=== PATIENT | female | born 1980 | race Caucasian/White ===

== ENCOUNTER 2020-03-23 10:00 | Emergency (ER) | payer BC, SELFPAY ==
--- NOTE | 2020-03-23 10:14 | ED_ITS ---
HPI - Extremity Injury (Upper) General: Chief Complaint: Extremity Injury, Upper Stated Complaint: RIGHT HAND/FINGER SWELLING Time Seen by Provider: 03/23/20 10:14 Source: patient Mode of arrival: ambulatory Limitations: no limitations History of Present Illness: HPI narrative: Patient comes in for swelling of the third distal digit. Patient states that last week she had shut the finger in a car door and caused a ungual hematoma. Patient was monitoring it but it seems the distal finger has swollen more and has become more tender. Some redness is noted to the distal finger. Vital signs are normal. Review of Systems General: Reports: 10 or more systems reviewed and unremarkable except in HPI and below Musc: Reports: other (Third digit injury on the right hand.) [facility] ED PFSH: Social History Smoking and tobacco status: never smoked Physical Exam Const: COMMON NORMALS: no apparent distress and oriented x3 GENERAL APPEARANCE: cooperative HENMT: COMMON NORMALS: normocephalic, TM's normal bilaterally and external nose normal HEAD & SCALP: normal to inspection and normocephalic NOSE: external nose normal TYMPANIC MEMBRANE: TM's normal bilaterally MOUTH: oral and palatal mucosa normal THROAT: posterior oropharynx normal Eye: GENERAL EYE: normal appearance of both eyes Neck/C-Spine: COMMON NORMALS: full ROM Lymph: LYMPHATIC: no lymphadenopathy noted Chest: COMMONS NORMALS: inspection of chest normal Resp: COMMON NORMALS: normal respiratory effort EFFORT & INSPECTION: Yes able to speak in complete sentences Cardio: COMMON NORMALS: regular rate and regular rhythm RATE: regular rate RHYTHM: regular rhythm GI: COMMON NORMALS: non-tender : COMMON NORMALS: Yes no CVA tenderness BLADDER/KIDNEY EXAM: Yes no CVA tenderness Back/Pelvis: COMMON NORMALS: no CVA tenderness and thoracic and lumbar spine normal to inspection Extremity: COMMON NORMALS: normal to inspection Neuro: COMMON NORMALS: oriented x3 and moves all extremities Psych: COMMON NORMALS: mental status grossly normal and cooperative Skin: NARRATIVE SKIN EXAM: Subungual hematomas noted to the third digit on the right hand. Some swelling is noted to the distal finger. Normal range of motion of the digit is noted. Procedures Abscess I/D Site: hand (3rd digit) Side (if applicable): right Technique: other (Small incision made with bevel of 18-gauge needle, dark sanguinous fluid) Amount of fluid expressed (mL): 2 Irrigation: No Complications: pain (Mild pain noted, patient tolerated well.) Course Vital Signs: Vital signs: Vital Signs Temperature 98.3 F 03/23/20 10:20 Pulse Rate 96 03/23/20 10:20 Respiratory Rate 16 03/23/20 10:20 Blood Pressure 144/89 03/23/20 10:20 Pulse Oximetry 97 03/23/20 10:20 MDM - Extremity Injury (Upper) MDM Narrative: Medical decision making narrative: Patient comes in today for swelling of the distal right finger. Exam noted a subungual hematoma with swelling to the proximal nailbed area. Increased redness is noted to the finger. Vital signs are normal. Differential diagnosis includes subungual hematoma, paronychia, fracture. X-ray showed no fracture. Paronychia was opened with a bevel of 18-gauge needle, dark sanguineous fluid was expressed from the wound with decrease in swelling. Patient be put on antibiotic and medication for pain with recommendations for follow-up as needed. Discharge Plan Discharge Patient Disposition: Home, Self-Care Clinical Impression: Paronychia of finger Qualifiers: Laterality: right Qualified Code(s): L03.011 - Cellulitis of right finger Condition: Stable Prescriptions: New cephalexin 500 mg capsule 500 mg PO TID 7 Days Qty: 21 RF: 0 hydrocodone-acetaminophen 5-325 mg tablet 1 tab PO Q6H PRN (Reason: pain (scale score 7-10)) Qty: 5 RF: 0 No Action baclofen 10 mg tablet 10 mg PO Q8H PRN (Reason: Pain (Scale Score 4-6)) RF: 0 tramadol 50 mg tablet 50 mg PO Q8H PRN (Reason: Pain (Scale Score 4-6)) RF: 0 Discharge Orders: Discharge Order (Routine); Ordered 03/23/20 Ordered By: Mark Gomez Referrals: Franky Parsons MD [Family Provider] - Discharge Diet: Usual diet Discharge Activity: Increase activity as tolerated Patient Instructions: Paronychia (ED) Activity Restrictions/Additional Instructions: Keep wound clean and dry. Take antibiotics as directed. You will lose the nail you can cover the site with a Band-Aid for protection. Follow-up with primary care as needed. Return to the ER for high fever or worsening symptoms. Coding Level of Care Code ED Mill Oiler for Treeg Fwd Exam Comprehensive
[2020-03-23 10:15] VITALS: BMI 23.1
[2020-03-23 10:20] VITALS: BP 144/89; PULSE 96; RESP 16; TEMP 36.8; O2SAT 97
--- NOTE | 2020-03-23 10:21 | XRR_ITS ---
PROCEDURE INFORMATION: Exam: XR Right Hand Exam date and time: 03/23/2020 10:34 AM Age: 39 years old Clinical indication: Injury or trauma; Injury history: Smashed 1 week ago in car door; Initial encounter; Crushing; Hand; Right TECHNIQUE: Imaging protocol: XR Right hand. Views: Frontal, lateral, and oblique views. COMPARISON: CR XR finger RT min 2V [id number] 03/20/2020 3:48 PM FINDINGS: Bones/joints: Normal. Soft tissues: Normal. XR/XR hand RT min 3V* [id number] IMPRESSION: No acute findings.
[2020-03-23] MEDS: bacitracin ointment Pkt 1 EACH TOPICAL (11:15)
[2020-03-23] MEDS: cephALEXin 500 mg Capsule PO (11:15)
== END 2020-03-23 11:16 | disposition home or self-care (01) ==
PROVIDERS: Emergency Provider Nurse Practitioner Family; Family Provider Family Medicine
DX: L03.011 Cellulitis of right finger (principal)
CPT/HCPCS: 10060; 12345; 73130; 99281; 99283

== ENCOUNTER 2022-12-22 17:00 | Emergency (ER) | payer SELFPAY ==
[2022-12-22 17:03] VITALS: BP 156/85; PULSE 106; RESP 18; TEMP 36.8; O2SAT 98; BMI 22.3
--- NOTE | 2022-12-22 17:12 | W.ED.FEMALGU ---
HPI - Female Genitourinary General: Chief complaint: Vaginal Bleeding Stated complaint: 6ish wks preg/legs swelling Time Seen by Provider: 12/22/22 17:11 Source: patient Mode of arrival: ambulatory Limitations: no limitations History of Present Illness: Patient is a 42-year-old female who presents to ED today for evaluation for lower leg swelling, abdominal bloating, vaginal bleeding/discharge/odor, and . Patient states this was an unwanted/unplanned as she recently finalized a divorce with her . She states she had a one-time encounter with a new sexual partner resulted in this . Patient states she has had scant vaginal spotting (only notices when she wipes) since finding out she was . This has not changed. Patient states she is not sure how far along she is. She states she had an abnormal period in September that she attributes to stress. She states she missed her period in October thus prompting her to take a test which was positive. Patient has noticed some lower leg swelling that she is concerned about. She reports some vague abdominal bloating but is not having any abdominal pain. She does report some vaginal discharge and odor that she thought might be related to a yeast infection. She does admit this could be secondary to an STI as she did have unprotected intercourse with a new partner. MD elicited complaint: suspected and other (LE swelling, bloating, vaginal bleeding/discharge) Onset (ago): week(s) Severity: mild Vaginal discharge: white Vaginal bleeding: scant Exacerbating factors: none Relieving factors: none Associated symptoms: Reports vaginal discharge; Deny abdominal pain, headache(s), nausea or syncope Treatment prior to arrival: none Sexual activity: Yes and New Sexual Partners Patient : Yes Possible : at home test positive Date of Last Menstrual Period: 03/02/20 Review of Systems Const: Denies: fever(s), chills, body aches, fatigue or malaise Eyes: Denies: change in vision or blurry vision Card: Reports: edema; Denies: chest pain, palpitations, irregular heart rhythm, swelling of feet/ankles, lightheadedness, syncope, pre-syncope, dyspnea on exertion, orthopnea, leg pain with exertion or acrocyanosis Resp: Denies: dyspnea, productive cough, non-productive cough, pain on inspiration or chest congestion GI: Reports: bloating; Denies: abdominal pain, nausea, vomiting, heartburn or diarrhea : Reports: vaginal odor and vaginal discharge; Denies: flank pain, difficulty voiding, dysuria, urinary frequency, urinary urgency, urinary hesitancy, hematuria, genital lesions, genital pruritis, vaginal bleeding or pelvic pain Musc: Reports: extremity swelling; Denies: neck pain, back pain, extremity pain, joint pain, joint swelling or joint redness Skin/Breast: Denies: rash Neuro: Denies: headache(s), numbness in extremities, weakness in extremities, sensory changes, difficulty walking or dizziness PFSH ED PFSH: Social History Smoking and tobacco status: never smoked Female Reproductive History: Date of last menstrual period: 03/02/20 Physical Exam Const: COMMON NORMALS: no acute distress, average body habitus, patient oriented x3, no limitations, healthy appearing, alert and well nourished GENERAL APPEARANCE: cooperative ORIENTATION/CONSCIOUSNESS: Yes awake, Yes oriented to person, Yes oriented to place and Yes oriented to time HENMT: COMMON NORMALS: normocephalic and atraumatic HEAD & SCALP: normal to inspection, normocephalic and atraumatic Eye: SCLERA: sclerae normal Neck/C-Spine: COMMON NORMALS: supple and no JVD GENERAL: Yes normal visual inspection Resp: COMMON NORMALS: normal respiratory effort and clear to auscultation bilaterally AUSCULTATION: clear to auscultation bilaterally Cardio: COMMON NORMALS: no JVD, regular rate and regular rhythm RATE: regular rate RHYTHM: regular rhythm GI: COMMON NORMALS: Normal to inspection, nondistended, normoactive bowel sounds present, Soft to palpation, non-tender, No hepatosplenomegaly present and no masses INSPECTION: Yes normal to inspection AUSCULTATION: Yes normoactive bowel sounds PALPATION: Yes Soft to palpation and Yes No hepatosplenomegaly present : COMMON NORMALS: Yes no CVA tenderness BLADDER/KIDNEY EXAM: Yes no CVA tenderness OB/EXTERNAL & SPECULUM: Deferred OB/external & speculum exam Back/Pelvis: COMMON NORMALS: no CVA tenderness Extremity: COMMON NORMALS: normal to inspection, full ROM, capillary refill normal, no joint enlargement and no calf tenderness GENERAL: Yes normal exam except as noted OTHER: very mild bilateral LE symmetrical edema Neuro: CHARMAINE COMA SCALE: document GCS findings [place] coma scale eye opening: Spontaneous [place] coma scale verbal response: Orientated [place] coma scale motor response: Obey commands [place] coma scale total score: 15 COMMON NORMALS: patient oriented x3, moves all extremities, no focal motor deficits, no sensory deficits noted and gait normal SENSORIUM/ORIENTATION: Yes alert, Yes oriented to person, Yes oriented to place and Yes oriented to time Skin: COMMON NORMALS: no rashes or lesions noted GENERAL SKIN EXAM: no rashes or lesions noted Course ED course: Patient refused blood work at this time. She states she does not like needles. It was explained to her the importance of blood work for evaluation of her complaints but she would just like the US at this time. She was agreeable to urine and self collect vaginal swabs. She declined pelvic exam. Vital Signs: Vital signs: Vital Signs Temperature 98.2 F 12/22/22 17:03 Pulse Rate 106 H 12/22/22 17:03 Respiratory Rate 18 12/22/22 17:03 Blood Pressure 156/85 12/22/22 17:03 Pulse Oximetry 98 12/22/22 17:03 Oxygen Delivery Me thod 12/22/22 17:03 MDM - Female Medical Decision Making Patient was found to have a 12w3d live intrauterine gestation. She refused blood work. UA showing evidence of infection with positive nitrites, trace leuks, 10-5 WBCs, and 3+ bacteria. She refused pelvic examination but was agreeable to self collect swabs. Wet prep showing clue cells. She does complain of vaginal discharge and vaginal odor that she will be treated with Flagyl for her BV in . She will also need to be on antibiotics for her UTI. Gonorrhea/chlamydia swabs pending. We will have patient follow-up with women's health clinic for OB care. Recommend she speak to them in regards to options/possible adoption for the unwanted . Strict return ED precautions given. Lab Data Radiology Impressions Ultrasound 12/22/22 17:26 IMPRESSION: 1. Live intrauterine gestation. 2. Small subchorionic hematoma noted. Laboratory Results Urine Color Yellow (Yellow) 12/22/22 17:40 Urine Appearance Hazy (CLEAR) A 12/22/22 17:40 Urine pH 5 (5-7) 12/22/22 17:40 Ur Specific [place] 1.025 (1.005-1.030) 12/22/22 17:40 Urine Protein Neg (Negative) 12/22/22 17:40 Urine Glucose (UA) Norm (Normal) 12/22/22 17:40 Urine Ketones 1+ (Negative) H 12/22/22 17:40 Urine Blood 2+ (Negative) H 12/22/22 17:40 Urine Nitrate Positive (Negative) H 12/22/22 17:40 Urine Bilirubin Neg (Negative) 12/22/22 17:40 Urine Urobilinogen Neg mg/dL (Negative) 12/22/22 17:40 Ur Leukocyte Esterase Trace (Negative) H 12/22/22 17:40 Urine RBC 5-10 /hpf (0-2) H 12/22/22 17:40 Urine WBC 5-10 /hpf (0-5) H 12/22/22 17:40 Ur Squamous Epith Cells 5-10 /hpf (0-5) H 12/22/22 17:40 Amorphous Sediment Not Reportable 12/22/22 17:40 Urine Bacteria 3+ /hpf (NONE) H 12/22/22 17:40 Urine HCG, Qual Positive (Negative) H 12/22/22 17:40 Discharge Plan Discharge Patient Disposition: Home Clinical Impression: Bacterial vaginosis in , Acute cystitis during in first trimester, , Acute cystitis during Condition: Stable Prescriptions: New metronidazole 500 mg tablet 500 mg PO BID 7 Days Qty: 14 0RF amoxicillin-pot clavulanate 875-125 mg tablet 1 tab PO BID Qty: 14 0RF No Action baclofen 10 mg tablet 10 mg PO Q8H PRN (Reason: Pain (Scale Score 4-6)) tramadol 50 mg tablet 50 mg PO Q8H PRN (Reason: Pain (Scale Score 4-6)) hydrocodone-acetaminophen 5-325 mg tablet 1 tab PO Q6H PRN (Reason: pain (scale score 7-10)) Qty: 5 0RF Discharge Orders: Discharge ED (Routine); Ordered 12/22/22 Ordered By: Kelli Perales Patient Instructions: (ED), Bacterial Vaginosis (ED) Activity Restrictions/Additional Instructions: As we discussed we will place you on antibiotics for the bacterial vaginosis and urinary tract infection. We will culture your urine for definitive confirmation. As we discussed your ultrasound today showed a 12-week live uterine gestation. I have placed information with case management to get you set up with the women's health clinic for OB care. Need to return to the emergency department for severe vaginal bleeding, abdominal pain, fevers, or any other concerns you may have. Coding Level of Care Code ED Insole Cementer for Chg Fwd Exam Comprehensive
--- NOTE | 2022-12-22 17:26 | USR_ITS ---
PROCEDURE INFORMATION: Exam: US First Trimester, Transabdominal and US , Transvaginal Exam date and time: 12/22/2022 6:11 PM Age: 42 years old Clinical indication: Lmp or gestational age (in weeks): 12w 3d by today's u/s; Other: Light intermittent spotting x 1-2 months; ; Prior surgery; Surgery date: 6+ months; Surgery type: 2 csections and a d&c only surgical interventions; Additional info: ; Vaginal bleeding. Positive qualitative hcg via home test and today's lab. No qualitative hcg has been ordered. LABS AND CLINICAL REPORTS: Last menstrual period start date: Unknown; 09/13/2022 Gestational age (Established): 14 w 2 d Estimated due date (Established): 06/20/2023 TECHNIQUE: Imaging protocol: Real-time transabdominal obstetrical ultrasound of the maternal pelvis and a first trimester , less than 14 weeks 0 days, with image documentation. Transvaginal imaging was used for better evaluation of the fetus, adnexa, and/or cervix. COMPARISON: US OB limited [id number] 04/22/2016 8:52 AM FINDINGS: Gestation: Live intrauterine gestation. Embryonic/ heart rate: 141 bpm Extra-embryonic membranes/Placenta: Subchorionic hematoma measures 1.9 cm x 1.5 cm x 1.9 cm. Amniotic fluid: Amniotic fluid and extra-amniotic fluid is normal for gestational age. BIOMETRY: Gestational age (AUA): 12 w 3 d Estimated due date (AUA): 07/03/2023 [place] length (CRL): 61 mm. EGA (CRL) is 12 w 3 d MATERNAL: Uterus: Uterus measures 10.8 cm x 9.7 cm x 10.7 cm. Right ovary/adnexa: Right ovary measures 2 cm x 2 cm x 2.7 cm. Right ovarian volume is 5.8 mL. Left ovary/adnexa: Left ovary measures 2.6 cm x 2.8 cm x 3.2 cm. Left ovarian volume is 11.9 mL. Intraperitoneal space: No intraperitoneal free fluid. US/US OB <= 14 weeks fetus [id number] IMPRESSION: 1. Live intrauterine gestation. 2. Small subchorionic hematoma noted.
[2022-12-22 18:09] LABS: Blood Urine 2+ (Negative); Glucose Urine UA Norm (Normal); Ketones Urine 1+ (Negative); Nitrate Urine Positive (Negative); Protein Urine Neg (Negative); Specific Gravity, Urine 1.025 (1.005-1.030); Urine Appearance Hazy (CLEAR); Urine Color Yellow (Yellow); pH Urine 5 (5-7)
[2022-12-22 18:10] LABS: Add Urine Culture? Yes; Add Urine Microscopic? YES; Bacteria Urine 3+ /hpf; Bilirubin Urine Neg (Negative); Leukocyte Esterase Urine Trace (Negative); Urobilinogen Urine Neg (Negative)
--- NOTE | 2022-12-22 19:04 | PC.NURSE ---
Report from Vandana LARIOS. Patient alert awake sitting on edge of bed. Pt asked about d/c, informed waiting on UD results and doctors order.
--- NOTE | 2022-12-23 11:18 | DCPLANNER ---
Addendum entered by Elaine Green 12/30/22 15:46: manager psychology received the following message from the [facility] care clinic regarding follow up appointment: Carina Chadwick completed item. On Wed 1:22p Dec 29, 2022 Carina Chadwick (Covering For: [facility]) Wrote To: Ofe Francisco [facility] DONE On Tue 1:20p Dec 29, 2022 Carina Chadwick (Covering For: [facility]) Wrote To: Ofe Francisco [facility] DONE On Tue 2:32p Dec 28, 2022 Ofe Francisco Wrote To: [facility] Attempted to contact patient to get scheduled/ VM was full Original Note: manager psychology had message to schedule a follow up appointment for patient with [facility]. manager psychology sent patients information to the front office staff at [facility]. Patients information will be printed and reviewed. Clinic will call patient with appointment information.
== END 2022-12-22 19:42 | disposition home or self-care (01) ==
PROVIDERS: Emergency Provider Physician Assistant
DX: O23.591 Infection of other part of genital tract in pregnancy, first trimester (principal); B96.89 Other specified bacterial agents as the cause of diseases classified elsewhere; Z3A.12 12 weeks gestation of pregnancy; O23.11 Infections of bladder in pregnancy, first trimester; N30.00 Acute cystitis without hematuria
CPT/HCPCS: 76801; 81001; 81025; 87077; 87086; 87186; 87210; 87491; 87591; 99284

== ENCOUNTER → 2025-06-03 13:20 | Outpatient (BNVA) | payer BC, SELFPAY | PROVIDERS: Visit Provider Nurse Practitioner | DX: J18.9 Pneumonia, unspecified organism (principal) | CPT/HCPCS: 71046 ==